=== PATIENT | male | born 1980 | race American Indian/Alaskan Native ===

== ENCOUNTER 2018-03-15 09:20 | Emergency (ER) | payer BC ==
[2018-03-15 09:28] VITALS: BP 115/55
[2018-03-15] MEDS ORDERED: NACL 0.9% 1000 ML 1,000 ML IV ONE (09:52)
[2018-03-15] MEDS ORDERED: ZOFRAN IV ONE (09:52)
[2018-03-15] MEDS ORDERED: TORADOL IV ONE (09:52)
--- NOTE | 2018-03-15 09:54 | Emergency Department Report ---
Blank Doc - Documentation Documentation: Patient is a 37-year-old Congol[place] male with past history of high cholesterol and diabetes who's complaining of right-sided headache for approximately 3 days. Patient also has some associated nausea and light sensitivity. Patient states the pain is 8 out of 10 in severity. Patient states she's never had a headache that lasted this long. Patient denies any fever or neck stiffness. Patient will have IV started given IV fluids and medicines for symptomatic relief and CT head will be ordered since the patient does not have a history of headaches.
--- NOTE | 2018-03-15 10:22 | Emergency Department Report ---
ED Headache HPI - General Chief Complaint: Headache Stated Complaint: HEADACHE /EYES HURT Time Seen by Provider: 03/15/18 09:49 Source: patient, family Exam Limitations: no limitations - History of Present Illness Initial Comments: Patient is a 37-year-old Vincentian male with past history of high cholesterol and diabetes who's complaining of right-sided headache for approximately 3 days. Patient also has some associated nausea and light sensitivity. Patient states the pain is 8 out of 10 in severity. Patient states she's never had a headache that lasted this long. Patient denies any fever or neck stiffness. Patient is taking Motrin and Tylenol without any relief. Pain aggravated by activity and light and no alleviating factor. Denies any neck pain or stiffness. Denies any abdominal or back pain. Denies any sore throats. Timing/Duration: constant, other (3 days) Quality: severe, achy Head Injury Location: occipital, parietal Recent Head Trauma: chronic headaches Modifying Factors: improves with: exposure to light, movement Associated Symptoms: fatigue, nausea/vomiting. denies: confusion, facial pain, fever/chills, flushing, loss of consciousness, nasal congestion, nasal drainage , numbness in legs/feet, rash, seizures, sinus infection, stiff neck, vision changes, weakness Allergies/Adverse Reactions: Allergies No Known Allergies Allergy (Unverified 03/15/18 09:27) Home Medications: Ambulatory Orders Codeine/Butalbital/ASA/Caffein [Fiorinal with Codeine #3 Cap] 1 each PO Q6H PRN #14 capsule 03/15/18 Ibuprofen [Motrin] 600 mg PO Q8H PRN #12 tablet 03/15/18 Ondansetron [Zofran Odt] 4 mg PO Q6H PRN #20 tab.rapdis 03/15/18 ED Review of Systems ROS: Stated complaint: HEADACHE /EYES HURT Other details as noted in HPI Constitutional: denies: chills, fever Eyes: other (light sensitivity). denies: eye pain, eye discharge, vision change ENT: denies: ear pain, throat pain, dental pain, hearing loss, congestion Respiratory: denies: cough, shortness of breath, SOB with exertion, SOB at rest , stridor, wheezing Cardiovascular: denies: chest pain, palpitations, edema, syncope Gastrointestinal: nausea, vomiting. denies: abdominal pain, diarrhea, constipation Musculoskeletal: denies: back pain, joint swelling, arthralgia, myalgia Skin: denies: rash, lesions Neurological: headache, vertigo. denies: weakness, numbness, paresthesias, confusion, abnormal gait ED Past Medical Hx - Past Medical History Previous Medical History?: Yes Hx Headaches / Migraines: Yes (occasional) - Surgical History Past Surgical History?: No Additional Surgical History: feet - Family History Family history: hypertension - Social History Smoking Status: Current Every Day Smoker Substance Use Type: Alcohol - Medications Home Medications: Home Medications Medication Instructions Recorded Confirmed Last Taken Type Codeine/Butalbital/ASA/Caffein 1 each PO Q6H PRN #14 capsule 03/15/18 Unknown Rx [Fiorinal with Codeine #3 Cap] Ibuprofen [Motrin] 600 mg PO Q8H PRN #12 tablet 03/15/18 Unknown Rx Ondansetron [Zofran Odt] 4 mg PO Q6H PRN #20 tab.rapdis 03/15/18 Unknown Rx ED Physical Exam - General Limitations: No Limitations General appearance: alert, in no apparent distress - Head Head exam: Present: atraumatic, normocephalic, normal inspection, other (normal exam) - Eye Eye exam: Present: normal appearance, PERRL, EOMI. Absent: nystagmus, periorbital swelling, periorbital tenderness Pupils: Present: normal accommodation - ENT ENT exam: Present: normal exam, normal orophraynx, mucous membranes moist, TM's normal bilaterally, normal external ear exam - Neck Neck exam: Present: normal inspection, full ROM. Absent: tenderness, lymphadenopathy, other (no C-spine tenderness) - Respiratory Respiratory exam: Present: normal lung sounds bilaterally. Absent: respiratory distress, chest wall tenderness - Cardiovascular Cardiovascular Exam: Present: regular rate, normal rhythm, normal heart sounds. Absent: systolic murmur, diastolic murmur - GI/Abdominal GI/Abdominal exam: Present: soft, normal bowel sounds. Absent: distended, tenderness, guarding, rebound, rigid - Extremities Exam Extremities exam: Present: normal inspection, full ROM, normal capillary refill , other (No cce. + 2 pulses in all extremities, no neurovascular compromise). Absent: tenderness, pedal edema, joint swelling, calf tenderness - Back Exam Back exam: Present: normal inspection, full ROM, other (ambulates without any difficulties). Absent: tenderness, CVA tenderness (R), CVA tenderness (L), muscle spasm, paraspinal tenderness, vertebral tenderness, rash noted - Neurological Exam Neurological exam: Present: alert, oriented X3, normal gait, reflexes normal. Absent: motor sensory deficit - Expanded Neurological Exam Expanded Neurological exam: Absent: innattentive, memory loss-remote event, memory loss- recent event, ataxia, receptive aphasia, expressive aphasia, total aphasia, tremor, protecting the airway Patient oriented to: Present: person, place, time Speech: Present: fluid speech Cranial nerves: EOM's Intact: Normal, Gag Reflex: Normal, Tongue Deviation: Normal, Nystagmus: Normal, Facial Sensation: Normal Upper motor neuron: Pronator Drift: Normal, Sensory Extinction: Normal Sensory exam: Upper Extremity Light Touch: Normal, Upper Extremity Temperature: Normal, UE 2 Point Discrimination: Normal, Lower Extremity Light Touch: Normal, Lower Extremity Temperature: Normal, LE 2 Point Discrimination: Normal Motor strength exam: RUE: 5, LUE: 5, RLE: 5, LLE: 5 Best Eye Response (Erika): (4) open spontaneously Best Motor Response (Erika): (6) obeys commands Best Verbal Response (Erika): (5) oriented [place] Total: 15 - Psychiatric Psychiatric exam: Present: normal affect, normal mood - Skin Skin exam: Present: warm, dry, intact, normal color. Absent: rash ED Course Vital Signs 03/15/18 09:27 Temperature 98 F Pulse Rate 60 Respiratory 16 Rate Blood Pressure 115/55 O2 Sat by Pulse 100 Oximetry - Reevaluation(s) Reevaluation #1: 03/15/18 11:16 Patient says pain is from 9-4/10 after Toradol 30 mg IV and Zofran 4 mg IV. No nausea present. Still awaiting IV bolus ED Medical Decision Making - Radiology Data Radiology results: report reviewed interpreted by me: This is a 37-year-old male here reports that he has been having headache over the last 3 days. He is relating the mid to either lack of sleep or stress. He said he said occasional headache in the past that resolved with taking over-the- counter medication but this headache is now gone away. She was screen by Dr. Sebastian Ayoub in order. Diagnostics: Patient's CT scan of the head and brain without contrast and this is dictated by radiologist and reported to myself without any acute findings. 1:Headache, episodic nonretractable-patient given Toradol 30 mg IV with relief of headache down to 4/10 and feeling better. We will send home on Fioricet and Motrin 2:Nausea and vomiting-patient given Zofran 4 mg IV for relief of Zofran and also given normal saline 1 L bolus. He will be discharged home in Zofran and to keep hydrated. Patient educated on CT scan results, diagnosis, medication and treatment plan and that he needs to follow up with neurologist for further evaluation and treatment. I also discussed with him that he needs to follow up with a primary care doctor in 2 days and if he does not have one he needs to follow-up with [facility]. Patient voiced understanding. Patient discharged home in stable condition. Vital signs stable afebrile and he is feeling better and pain is better. Nausea has been resolved. She discharged home with prescription of Motrin, Zofran, Fioricet with codeine CT scan of the head and brain without contrast dictated by radiologist and report reviewed by myself. See report below. Patient: CHIDI KENNEDY MR#: [id number] : 1980 Acct:[id number] Age/Sex: 37 / M ADM Date: 03/15/18 Loc: ED Attending Dr: Ordering Physician: VALARIE AYOUB MD Date of Service: 03/15/18 Procedure(s): CT head/brain wo con Accession Number(s): [id number] cc: VALARIE AYOUB MD CT HEAD WITHOUT CONTRAST: HISTORY: New onset headaches. TECHNIQUE: Sequential 2.5mm CT images. COMPARISON: none. FINDINGS: Cerebral Parenchyma: Within normal limits. Cerebellum: Within normal limits. Brainstem: Within normal limits. Ventricles: Normal. Sella: Normal. Extra-axial spaces: Normal. Basal Cisterns: Normal. Intracranial Hemorrhage: None. Midline Shift: None. Calvarium: Normal. Sinuses: Normal. Mastoid Air Cells: Normal. Visualized Orbits: Normal. IMPRESSION: Cranial CT scan within normal limits. Transcribed By: TTR Dictated By: GREGORIA SCANLON JR, MD Electronically Authenticated By: GREGORIA SCANLON JR, MD Signed Date/Time: 03/15/18 1036 DD/ 1035 TD/TT: 03/15/18 1036 - Differential Diagnosis intracranial abnormality vs extracranial oabnormal, simple headache, URI Critical care attestation.: If time is entered above; I have spent that time in minutes in the direct care of this critically ill patient, excluding procedure time. ED Disposition Clinical Impression: Headache Qualifiers: Headache type: unspecified Headache chronicity pattern: episodic headache Intractability: not intractable Qualified Code(s): R51 - Headache Nausea & vomiting Qualifiers: Vomiting type: unspecified Vomiting Intractability: non-intractable Qualified Code(s): R11.2 - Nausea with vomiting, unspecified Disposition: DC- TO HOME OR SELFCARE Is pt being admited?: No Does the pt Need Aspirin: No Condition: Stable Instructions: Acute Headache (ED), Acute Nausea and Vomiting (ED) Additional Instructions: Please follow up with neurologist as instructed for headache Take Zofran for nausea Take Motrin for mild to moderate pain Take Fioricet with codeine for severe pain but please do not drive or operate heavy machinery while taking this medication as cause drowsiness If your headache recur, nausea vomiting, neck pain, fever, dizziness, blurred vision, change in speech, please return to the emergency room SUSANNAH All of the primary care physician in 2 days and if he do not have a primary care physician follow-up at [facility] Prescriptions: Codeine/Butalbital/ASA/Caffein [Fiorinal with Codeine #3 Cap] 1 each PO Q6H PRN #14 capsule PRN Reason: severe headache Ibuprofen [Motrin] 600 mg PO Q8H PRN #12 tablet PRN Reason: Pain Ondansetron [Zofran Odt] 4 mg PO Q6H PRN #20 tab.rapdis PRN Reason: Nausea And Vomiting Referrals: PRIMARY CARE, [Primary Care Provider] - 03/17/18 Forms: Work/School Release Form(ED), Accompanied Note
--- NOTE | 2018-03-15 10:36 | Cat Scan Report ---
CT HEAD WITHOUT CONTRAST: HISTORY: New onset headaches. TECHNIQUE: Sequential 2.5mm CT images. COMPARISON: none. FINDINGS: Cerebral Parenchyma: Within normal limits. Cerebellum: Within normal limits. Brainstem: Within normal limits. Ventricles: Normal. Sella: Normal. Extra-axial spaces: Normal. Basal Cisterns: Normal. Intracranial Hemorrhage: None. Midline Shift: None. Calvarium: Normal. Sinuses: Normal. Mastoid Air Cells: Normal. Visualized Orbits: Normal. IMPRESSION: Cranial CT scan within normal limits.
== END 2018-03-15 12:31 | disposition home or self-care (01) ==
LOC: ED 09:20
DX: G43.909 Migraine, unspecified, not intractable, without status migrainosus (principal); F17.200 Nicotine dependence, unspecified, uncomplicated; E78.00 Pure hypercholesterolemia, unspecified; E11.9 Type 2 diabetes mellitus without complications
CPT/HCPCS: 70450; 96361; 96374; 99283; J7030

== ENCOUNTER 2018-09-10 00:57 | Emergency (ER) | payer SELFPAY ==
[2018-09-10] MEDS ORDERED: ROCEPHIN IM ONE (06:01)
[2018-09-10] MEDS ORDERED: XYLOCAINE 1% MPF 5 mL INFILTRATI ONE (06:01)
[2018-09-10] MEDS ORDERED: ZITHROMAX PO ONE (06:01)
--- NOTE | 2018-09-10 06:07 | Emergency Department Report ---
ED Male HPI - General Chief complaint: Urogenital-Male Stated complaint: BUMP UNDER SKIN/BURN WHEN URINE Time Seen by Provider: 09/10/18 06:00 Source: patient Mode of arrival: Ambulatory Limitations: No Limitations - History of Present Illness Initial comments: Patient is a 37-year-old male who presents with penile discharge 3 days yellow- green pus with dysuria and no open sores lesions or bleeding Patient has a vascular department to be checked for STD there is no nausea vomiting no belly pain no fevers or chills MD Complaint: penile discharge, dysuria Onset/Timin -: days(s) Location: penis Radiation: none Severity: moderate Severity scale (0 -10): 5 Quality: aching Consistency: constant Improves with: none Worsens with: urination new sexual partner discharge, dysuria - Related Data Sexually active: Yes Previous Rx's Medication Instructions Recorded Last Taken Type Codeine/Butalbital/ASA/Caffein 1 each PO Q6H PRN #14 capsule 03/15/18 Unknown Rx [Fiorinal with Codeine #3 Cap] Ibuprofen [Motrin] 600 mg PO Q8H PRN #12 tablet 03/15/18 Unknown Rx Ondansetron [Zofran Odt] 4 mg PO Q6H PRN #20 tab.rapdis 03/15/18 Unknown Rx Doxycycline [Vibramycin CAP] 100 mg PO BID 10 Days #20 capsule 09/10/18 Unknown Rx MDD 20 Allergies Allergy/AdvReac Type Severity Reaction Status Date / Time No Known Allergies Allergy Unverified 03/15/18 09:27 ED Review of Systems ROS: Stated complaint: BUMP UNDER SKIN/BURN WHEN URINE Other details as noted in HPI Constitutional: denies: chills, fever Eyes: denies: eye pain, eye discharge, vision change ENT: denies: ear pain, throat pain Respiratory: denies: cough, shortness of breath, wheezing Cardiovascular: denies: chest pain, palpitations Endocrine: no symptoms reported Gastrointestinal: denies: abdominal pain, nausea, vomiting, diarrhea Genitourinary: urgency, dysuria, frequency, discharge. denies: hematuria, testicular pain, testicular mass Musculoskeletal: denies: back pain, joint swelling, arthralgia Skin: denies: rash, lesions Neurological: denies: headache, weakness, paresthesias Psychiatric: denies: anxiety, depression Hematological/Lymphatic: denies: easy bleeding, easy bruising ED Past Medical Hx - Past Medical History Hx Headaches / Migraines: Yes (occasional) - Surgical History Additional Surgical History: feet - Social History Smoking Status: Current Every Day Smoker Substance Use Type: Alcohol - Medications Home Medications: Home Medications Medication Instructions Recorded Confirmed Last Taken Type Codeine/Butalbital/ASA/Caffein 1 each PO Q6H PRN #14 capsule 03/15/18 Unknown Rx [Fiorinal with Codeine #3 Cap] Ibuprofen [Motrin] 600 mg PO Q8H PRN #12 tablet 03/15/18 Unknown Rx Ondansetron [Zofran Odt] 4 mg PO Q6H PRN #20 tab.rapdis 03/15/18 Unknown Rx Doxycycline [Vibramycin CAP] 100 mg PO BID 10 Days #20 capsule 09/10/18 Unknown Rx MDD 20 ED Physical Exam - General Limitations: No Limitations General appearance: alert, in no apparent distress - Head Head exam: Present: atraumatic, normocephalic, normal inspection - Eye Eye exam: Present: normal appearance, PERRL, EOMI - ENT ENT exam: Present: normal exam, normal orophraynx, mucous membranes moist, TM's normal bilaterally, normal external ear exam - Neck Neck exam: Present: normal inspection, tenderness. Absent: full ROM, lymphadenopathy, thyromegaly - Respiratory Respiratory exam: Present: normal lung sounds bilaterally. Absent: respiratory distress, wheezes, stridor, chest wall tenderness - Cardiovascular Cardiovascular Exam: Present: regular rate, normal rhythm. Absent: systolic murmur, diastolic murmur, rubs, gallop - GI/Abdominal GI/Abdominal exam: Present: soft, normal bowel sounds. Absent: distended, rebound, bruit, hernia - Rectal Rectal exam: Present: deferred - Extremities Exam Extremities exam: Present: normal inspection - Back Exam Back exam: Present: normal inspection, full ROM. Absent: tenderness, CVA tenderness (R), CVA tenderness (L), muscle spasm, paraspinal tenderness, vertebral tenderness, rash noted - Neurological Exam Neurological exam: Present: alert, oriented X3 - Psychiatric Psychiatric exam: Present: normal affect, normal mood - Skin Skin exam: Present: warm, dry, intact, normal color. Absent: rash ED Medical Decision Making - Medical Decision Making this is a STD tx for same, rocephin, azithromycin, will dc to home with rx for doxycycline po pt will follow up with health department in 2 days for HIV an HSV screening pt vebalized agreement and understanding of discharge plan. Critical care attestation.: If time is entered above; I have spent that time in minutes in the direct care of this critically ill patient, excluding procedure time. ED Disposition Clinical Impression: STD (sexually transmitted disease) Disposition: DC-01 TO HOME OR SELFCARE Is pt being admited?: No Condition: Stable Instructions: Sexually Transmitted Diseases (ED) Prescriptions: Doxycycline [Vibramycin CAP] 100 mg PO BID 10 Days #20 capsule MDD 20 Referrals: PRIMARY CARE, [Primary Care Provider] - 3-5 Days Forms: Work/School Release Form(ED) Time of Disposition: 06:10
[2018-09-10 06:38] VITALS: BP 128/72
== END 2018-09-10 06:37 | disposition home or self-care (01) ==
LOC: ED 00:57
DX: A64 Unspecified sexually transmitted disease (principal); G43.909 Migraine, unspecified, not intractable, without status migrainosus; F17.200 Nicotine dependence, unspecified, uncomplicated
CPT/HCPCS: 96372; 99282; J0696